=== PATIENT | male | born 2000 | race Caucasian/White ===

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

== ENCOUNTER → 2025-03-25 | Outpatient (CLI) | payer OTHER | LOC: M WUC 09:55 | PROVIDERS: ATTEND Student in an Organized Health Care Education/Training Program | DX: R21 Rash and other nonspecific skin eruption (principal); M79.644 Pain in right finger(s); M79.89 Other specified soft tissue disorders; M86.8X4 Other osteomyelitis, hand ==